=== PATIENT | female | born 2005 | race Caucasian/White ===

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

== ENCOUNTER 2025-07-12 15:24 | Outpatient (REF) | payer MEDICAID, SELFPAY ==
--- OUTSIDE RECORDS SUMMARY | 2025-07-12 14:00 | XMS_ITS | Encounter Summary ---
Author Organization [employer] Address [address] [place] [address] Care Team Providers Care Brake Operator Helper Name Role Phone Cathy Wolfe ENTRY LEVEL CHEMIST Primary Care Provider [phone] Encounter Details Date Type Department Care Team (Late st Contact Info) Description 07/12/2025 2:00 PM EDT Office Visit [facility] [address] [place] [address] Cathy Wolfe FNP [address] [place] [address] Well adult exam (Primary Dx); Encounter for immunization; Dietary counseling; Exercise counseling; Intractable headache, unspecified chronicity pattern, unspecified headache type; Anxiety and depression Social History Tobacco Use Types Packs/Day Years Used Date Smoking Tobacco: Never Passive Smoke Exposure: Never Smokeless Tobacco: Never Alcohol Use Standard Drinks/Week Comments Never 0 (1 standard drink = 0.6 oz pur e alcohol) Depression Answer Date Recorded Patient Health Questionnaire-9 Score 9 07/12/2025 Patient Health Questionnaire-9 Score 9 07/12/2025 Last PHQ-9: Questionnaire Data Not on file 0 07/12/2025 Housing Stability Answer Date Recorded What is your housing situation today? I do not have housing (Staying with others, in a hotel, in a mcfp, living outside on the street, on a beach, in a car, or in a park 07/12/[address] you li ve. Do you have problems with any of the following? None of the above 07/12/2025 Food Insecurity Answer Date Recorded Within the past 12 months, y ou worried that your food would run out before you got money to buy more: Sometimes True 2024 Within the past 12 months,th e food you bought just didn't last and you didn't have enough money to get more: Sometimes True 07/12/2025 Transportation Answer Date Recorded In the past 12 months, has l ack of transportation kept you from medical appts, meetings, work or from getting things needed for daily living? No 07/04/2025 Utilities Answer Date Recorded In the past 12 months, has t he electric, gas, oil or water company threatened to shut off services in your home? No 07/04/2025 Depression Answer Date Recorded Patient Health Questionnaire-2 Score 2 07/12/2025 Internet Access Answer Date Recorded Internet Access Q1 Yes 07/04/2025 Internet Access Q2 Not on file 07/04/2025 Comments Unknown Intention Date Recorded No desire to become (finding) 0 07/12/2025 Sex and Gender Information Value Date Recorded Sex Assigned at Female 09/08/2022 10:38 AM EDT Legal Sex Female 10:38 AM EDT Gender Identity Female 09/08/2022 10:38 AM EDT Sexual Orientation Straight 09/08/2022 10 :38 AM EDT documented as of this encounter Last Filed Vital Signs Vital Sign Reading Time Taken Comments Blood Pressure 122/68 07/12/2025 2:05 PM EDT Pulse 80 07/12/2025 2:05 PM EDT Temperature 36.7 C (98 F) 07/12/2025 2:05 PM EDT Respiratory Rate 18 07/12/2025 2:05 PM EDT Oxygen Saturation 99% 07/12/2025 2:05 PM EDT Inhaled Oxygen Concentration - - Weight 65.4 kg (144 lb 2 oz) 07/12/2025 2:05 PM EDT Height 158.2 cm (5' 2.3 ) 07/12/2025 2:05 PM EDT Body Mass Index 26.11 07/12/2025 2:05 PM EDT documented in this encounter Functional Status * Over the past 2 weeks, how often have you been bothered by any of the following problems? Question Answer Date of Assessment Author Patient Health Questionnaire -2 Score 2 07/12/2025 2:50 PM EDT Zuleyka Bro MA * Little interest or pleasure in doing things Answer Date of Assessment Author Several days 07/12/2025 2:50 PM EDT Zuleyka Thorne [place] * Feeling down, depressed, or hopeless Answer Date of Assessment Author Several days 07/12/2025 2:50 PM EDT Zuleyka Thorne [place] * Trouble falling or staying asleep, or sleeping too much Answer Date of Assessment Author Several days 07/12/2025 2:50 PM EDT Zuleyka Thorne MA * Feeling tired or having little energy Answer Date of Assessment Author Several days 07/12/2025 2:50 PM EDT Zuleyka Thorne MA * Poor appetite or overeating Answer Date of Assessment Author Several days 07/12/2025 2:50 PM EDT Zuleyka Thorne [place] * Feeling bad about yourself - or that you are a failure or have let yourself or your family down Answer Date of Assessment Author More than half the days 07/12/2025 2:50 PM EDT Zuleyka Olivo MA * Trouble concentrating on things, such as reading the newspaper or watching television Answer Date of Assessment Author Several days 07/12/2025 2:50 PM EDT Zuleyka Thorne MA * Moving or speaking so slowly that other people could have noticed? Or the opposite - being so fidgety or restless that you have been moving around a lot more than usual. Answer Date of Assessment Author Several days 07/12/2025 2:50 PM EDT Zuleyka Thorne MA * Thoughts that you would be better off or hurting yourself in some way Answer Date of Assessment Author Not at all 07/12/2025 2:50 PM EDT Zuleyka Thorne MA * Patient Health Questionnaire-9 Score Answer Date of Assessment Author 9 07/12/2025 2:50 PM EDT Zuleyka Thorne MA * How difficult have these problems made it for you to do your work, take care of things at home, or get along with other people? Answer Date of Assessment Author Somewhat difficult 07/12/2025 2:50 PM EDT Zuleyka Bro MA * Over the last 2 weeks, how often have you been bothered by any of the following problems? Question Answer Date of Assessment Author Feeling nervous, anxious, or on edge 2 01/2025 3:26 PM EDT Hayley Sánchez Not being able to stop or co ntrol worrying 2 07/12/2025 3:26 PM EDT Hayley Sánchez Worrying too much about diff erent things 2 07/12/2025 3:26 PM EDT Hayley Sánchez Trouble relaxing 1 07/12/2025 3:26 PM EDT Hayley Landa Being so restless that it is hard to sit still 3 07/12/2025 3:26 PM EDT Hayley Sánchez Becoming easily annoyed or irritable 2 01/2025 3:26 PM EDT Hayley Sánchez Feeling afraid as if somethi ng awful might happen 1 07/12/2025 3:26 PM EDT Hayley Sánchez JUNG-7 Total Score 13 07/12/2025 3:26 PM EDT Hayley Sánchez documented as of this encounter Progress Notes * MARY Joseph - 07/12/2025 2:00 PM EDT Subjective: Georgette Brady is a 20 y.o. female who presents to the office for a physical exam. Interim history: Headaches - Recurrent headaches since March 2025 - One week of severe migraine in March 2025, followed by intermittent headaches occurring 3-4 times per week - Previous headaches were mild, but recent episodes have been more intense - Sometimes triggered by stress, but can also occur without clear trigger - Uses [id number] medication containing ibuprofen and acetaminophen for relief Generalized Anxiety - Previously diagnosed with generalized anxiety by psychologist - Attempted to schedule psychiatric appointment for medication but did not attend - Took medication for anxiety at age 15-16, none since then Current concerns: Headache Problem List[1] Surgical History[2] Family History[3] Social History Living situation: Lives in home with son, sister, brother and parents Safety:No fire arms in the home. Working smoke and fire alarm. 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 Routine exercise Substance use: none Sexual activity: Yes. Pills as contraception LMP: Last week last month about 20 something Dental: To schedule at [facility] Vision: [facility] vision Children: 1 son Mental health: Denies SI, harm delma or others Allergies[4] Current Medications[5] Health Maintenance Topic Date Due Family Planning (PISQ) Never done Meningococcal B Vaccine (1 of 2 - Standard) Never done Chlamydia and Gonorrhea Screening 05/08/2024 COVID-19 Vaccine (3 - 2024- season) 2025 Influenza Vaccine (1) 07/10/2025 Depression Monitoring 01/09/2026 DTaP/Tdap/Td Vaccines (7 - Td or Tdap) 04/15/2026 Tobacco Screening 07/12/2026 SDOH Screening 07/12/2026 Alcohol/Substance Use Screening 07/12/2026 Disability Screening 07/12/2026 Zoster Vaccines (1 of 2) 2055 RSV Patients and Patients Aged 60 years or older (1 - 1-dose 75+ series) 2080 HIB Vaccines Completed Hepatitis B Vaccines Completed IPV Vaccines Completed Hepatitis A Vaccines Completed Meningococcal Vaccine Completed HPV Vaccines Completed Pneumococcal Vaccine: Pediatrics (0 to 5 Years) and At-Risk Patients (6 to 49) Years Completed HIV Screening Completed Hepatitis C Screening Completed RSV under 20 months Aged Out Rotavirus Vaccines Aged Out Review of Systems Constitutional: Negative for activity change, appetite change, fatigue and fever. HENT: Negative for congestion, ear discharge, ear pain, rhinorrhea and sore throat. Eyes: Negative for discharge, redness and itching. Respiratory: Negative for cough, shortness of breath and wheezing. Cardiovascular: Negative for chest pain. Gastrointestinal: Negative for abdominal pain, blood in stool, constipation, diarrhea, nausea and vomiting. Endocrine: Negative for polydipsia and polyuria. Genitourinary: Negative for decreased urine volume, difficulty urinating, dyspareunia, hematuria and menstrual problem. Musculoskeletal: Negative for arthralgias, gait problem and joint swelling. Skin: Negative for rash. Allergic/Immunologic: Negative for environmental allergies and food allergies. Neurological: Positive for headaches. Negative for dizziness and weakness. Hematological: Does not bruise/bleed easily. Psychiatric/Behavioral: Negative for behavioral problems, sleep disturbance and suicidal ideas. Vitals: 07/12/25 1405 BP: 122/68 BP Location: Left arm Patient Position: Sitting BP Cuff Size: Adult Pulse: 80 Resp: 18 Temp: 98 ??F (36.7 ??C) TempSrc: Oral SpO2: 99% Weight: 144 lb 2 oz (65.4 kg) Height: 5' 2.3 (1.582 m) Physical Exam Constitutional: Appearance: Normal appearance. HENT: Head: Normocephalic and atraumatic. Right Ear: Tympanic membrane, ear canal and external ear normal. Left Ear: Tympanic membrane, ear canal and external ear normal. Nose: Nose normal. No congestion. Mouth/Throat: Mouth: Mucous membranes are moist. Pharynx: Oropharynx is clear. Eyes: Extraocular Movements: Extraocular movements intact. Pupils: Pupils are equal, round, and reactive to light. Cardiovascular: Rate and Rhythm: Normal rate and regular rhythm. Pulses: Normal pulses. Heart sounds: Normal heart sounds. No murmur heard. Pulmonary: Effort: Pulmonary effort is normal. Breath sounds: Normal breath sounds. No wheezing. Chest: Chest wall: No tenderness. Abdominal: General: Abdomen is flat. Bowel sounds are normal. Palpations: Abdomen is soft. Tenderness: There is no guarding or rebound. Musculoskeletal: General: Normal range of motion. Cervical back: Normal range of motion. Right lower leg: No edema. Left lower leg: No edema. Skin: General: Skin is warm and dry. Capillary Refill: Capillary refill takes less than 2 seconds. Findings: No bruising. Neurological: General: No focal deficit present. Mental Status: She is alert and oriented to person, place, and time. Cranial Nerves: No cranial nerve deficit. Sensory: No sensory deficit. Psychiatric: Mood and Affect: Mood normal. Behavior: Behavior normal. Thought Content: Thought content normal. Judgment: Judgment normal. Visit Diagnoses Well adult exam - Primary Well nourished, alert and cooperative , good historian, and answering questions appropriately Plan Order comprehensive blood work to include thyroid function tests, complete blood count (CBC), sexually transmitted infection (STI) panel, lipid panel, and hemoglobin A1c to assess cholesterol levels and diabetes status. No family hx of colon CA, colonoscopy / stool based tests deferred to 45 yrs Diet and exercise review Hep B lab work to determine presence of antigens or antibody Lifestyle and behavioral health assessment Patient education on vaccination and importance getting annual vaccines . Due for MCV4, discussed and agreed to take vaccine Relevant Orders Comprehensive Metabolic Panel Hepatitis B Core Antibody, Total TSH Hepatitis B Surface Antibody, Qualitative Hepatitis B surface antigen, EIA Hepatitis C Antibody with Reflex to HCV, RNA, Quantitative, Real-Time PCR CBC auto differential HIV-1/2 Antigen and Antibodies, Fourth Generation, with Reflexes Lipid Panel, Standard Vitamin D, 25-Hydroxy, Total, Immunoassay Hemoglobin A1c Chlamydia/N. Gonorrhoeae RNA, TMA, Vaginal Exercise counseling Dietary counseling Eat healthy and focus on healthyfood choices daily fruits, vegetables, grains, low fat milk, low carbohydrate and fat Maintain healthy weight as this will lower your risk for many health problems. Be physically active at least 45 minutes a day Encounter for immunization Relevant Orders MCV4 (MENQUADFI) 2 yrs + (Completed) Intractable headache, unspecified chronicity pattern, unspecified headache type Recommended continuation of ibuprofen or acetaminophen as needed for headache relief. Advised to keep a headache diary for 1 month, documenting frequency, activities, associated symptoms, and location of pain. Follow-up visit scheduled in 4 weeks to review headache diary and determine need for continuous or abortive medication. Anxiety and Depression - Generalized anxiety previously diagnosed by psychologist. - Referred to therapist for evaluation and management. Patient was seen during the visit by therapist - Patient will consider pharmacologic treatment after starting therapy DATE PITTER Resident Attestation: ITaylor , have reviewed the resident's note and agree with the assessment & plan of care as documented above. Visit Conducted in: Wolof Translation by: [place] [id number] [1] Patient Active Problem List Diagnosis JUNG (generalized anxiety disorder) Gastroenteritis Chronic low back pain without sciatica Grief Mild episode of recurrent major depressive disorder (CMS/HCC) [2] Past Surgical History: Procedure Laterality Date SECTION, LOW TRANSVERSE [3] Family History Problem Relation Name Age of Onset Asthma Father Asthma Brother Thyroid disease Brother [4] No Known Allergies [5] Current Outpatient Medications Medication Sig Dispense Refill 11/28 1-20 MG-MCG tablet Take 1 tablet by mouth Once per day. triamcinolone (Kenalog) 0.1 % cream 1 applic by topical route 2 times per day for max 14 days No current facility-administered medications for this visit. documented in this encounter Plan of Treatment Scheduled Orders Name Type Priority Associated Diagnoses Orde r Schedule Hepatitis B Core Antibody, Total Lab Routine Well adult exam Expected: 07/12/2025 (Approximate), Expires: 07/11/2026 Hepatitis B Surface Antibody, Qualitative Lab Routine Well adult exam Expected: 07/12/2025 (Approximate), Expires: 07/11/2026 Hepatitis B surface antigen, EIA Lab Routine Well adult exam Expected: 07/12/2025 (Approximate), Expires: 07/11/2026 Hepatitis C Antibody with Reflex to HCV, RNA, Quantitative, Real-Time PCR Lab Routine Well adult exam Expected: 07/12/2025, Expires: 07/11/2026 HIV-1/2 Antigen and Antibodies, Fourth Generation, with Reflexes Lab Routine Well adult exam Expected: 07/12/2025 (Approximate), Expires: 07/11/2026 Chlamydia/N. Gonorrhoeae RNA, TMA, Vaginal Microbiology Routine Well adult exam Ordered: 07/12/2025 documented as of this encounter Procedures Procedure Name Priority Date/Time Associated Diagnosis Comments VITAMIN D,25-OH,TOTAL,IA Routine 07/12/2025 3:32 PM EDT Well adult exam CBC WITH AUTO DIFFERENTIAL Routine 07/12/2025 3:32 PM EDT Well adult exam TSH Routine 07/12/2025 3:32 PM EDT Well adult exam HEMOGLOBIN A1C Routine 07/12/2025 3:32 PM EDT Well adult exam LIPID PANEL, STANDARD Routine 07/12/2025 3:32 PM EDT Well adult exam COMPREHENSIVE METABOLIC PANEL Routine 07/12/2025 3:32 PM EDT Well adult exam documented in this encounter Results * Hemoglobin A1c (07/12/2025 3:32 PM EDT) Hemoglobin A1c 5.4 <6.0 % [facility] Comment:Hemoglobin A1C Refer ence Range Adults: 4.8 - 6.0 % Non diabetic: < 6.0 % Goal: < 7.0 %Additional Action Suggested: > 8.0 %Note: Hemoglobin A1c results are invalid for patients with abnormal amounts of HbF. Blood transfusions may impact the HbA1c concentration in the patient sample. Estimated Average Glucose 108 mg/dL [facility] Comment:eAG = Estimated ave rage glucose which is %A1C expressed asaverage glucose, using the formula of the U1Q-LqylkpoEhduyst Glucose study (ADAG), Diabetes Care, Vol.31,#8,Jun. 2007 Blood Venous blood specimen / Unknown 07/12/2025 3:32 PM EDT 07/12/2025 4:17 PM EDT us Cathy Wolfe [facility] LAB BLOOD ORDERABLES Final Res ult [facility] [address] [place] [phone] [phone] * Vitamin D, 25-Hydroxy, Total, Immunoassay (07/12/2025 3:32 PM EDT) Vitamin D 25-OH Total 30.3 >30 ng/mL [facility] Comment: Health Based Reference Values*< 20 ng/mL [id number] ng/mL Insufficient> 30 ng/mL Sufficient*Dany MATHIS. N Engl J Med. 2007;357:266-280There is no well-established upper level of normal vitamin Dlevels. Some laboratories use 50 ng/mL as an upper limit ofnormal. However, toxicity is patient-dependent and may occurat any level. Careful correlation with the patient'spresentation is necessary and, if there is concern forvitamin D toxicity, treatment should be consideredirrespective of the serum level.Care must be taken in interpreting Vitamin D results fromdifferent laboratories and methodologies. Published datademonstrated that results from patients undergoinghemodialysis may show a negative bias when tested withvarious automated 25-OH vitamin D assays when compared toLC-MS/MS.When testing samples from patients whose predominant form ofVitamin D is Vitamin D2, such as patients receiving VitaminD2 supplementation, results that are subtherapeutic shouldbe confirmed with another method such as LC-MS/MS. Blood Venous blood specimen / Unknown 07/12/2025 3:32 PM EDT 07/12/2025 4:17 PM EDT [facility] LAB BLOOD ORDERABLES Final Res ult Performing Organization Address [facility] Co de Phone Number [facility] [address] [place] [phone] [phone] * Lipid Panel, Standard (07/12/2025 3:32 PM EDT) Triglycerides 51 <150 mg/dL [facility] Comment:Desirable Triglyceri de: less than 150 mg/dLBorderline High Triglyceride 150-199 mg/dLHigh Triglyceride: 200-499 mg/dLVery High Triglyceride: greater than or equal to 5OO mg/dL Cholesterol 128 <200 mg/dL [facility] Comment:Desirable Cholestero l: less than 200 mg/dLBorderline High Cholesterol: 200-239 mg/dLHigh Cholesterol: greater than 239 mg/dL LDL Cholesterol Calculated 60 <100 mg/dL [facility] Comment:Desirable LDL: less than 100 mg/dLNear Optimal/Above Optimal LDL: 110- 129 mg/dLBorderline High LDL: 130-159 mg/dLHigh LDL: 160-189 mg/dLVery High LDL: greater than or equal to 190 mg/dL HDL Cholesterol 58 >40 mg/dL [facility] Comment:Desirable HDL: great er than 40 mg/dL Note: This HDL assay may give artificially low results in patients with liver disease. Blood Venous blood specimen / Unknown 07/12/2025 3:32 PM EDT 07/12/2025 4:17 PM EDT [facility] LAB BLOOD ORDERABLES Final Res ult Performing Organization Address [facility]/ZIP Co de Phone Number [facility] [address] [place] [address] [phone] * (ABNORMAL) CBC auto differential (07/12/2025 3:32 PM EDT) White Blood Count 7.2 4.8 - 10.8 X10*3/uL [facility] Red Blood Count 4.16(L) 4.20 - 5.50 X10*6/uL [facility] Hemoglobin 10.0(L) 12.0 - 16.0 g/dl [facility] Hematocrit 31.8(L) 37.0 - 47.0 % [facility] Mean Corpuscular Volume 76.4(L) 80.0 - 98.0 fL [facility] Mean Corpuscular Hemoglobin 24.0(L) 27.0 - 33.0 pg [facility] Mean Corpuscular HGB Conc 31.4 31.0 - 35.0 g/dl [facility] Red Cell Distribution Width 15.8 11.0 - 16.0 % [facility] Platelet Count 298 160 - 400 X10*3/uL [facility] Mean Platelet Volume 11.0 9.4 - 12.3 fL [facility] Neutrophils Percent Auto 58.2 45 - 73 % [facility] Imm Gran Pct Auto 0.3 0.0 - 0.4 % [facility] Lymphocytes Percent Auto 33.5 20 - 40 % [facility] Monocytes Percent Auto 6.1 2 - 11 % [facility] Eosinophils Percent Auto 1.3 0 - 4 % [facility] Basophils Percent Auto 0.6 0 - 2 % [facility] NRBC Pct Auto 0.0 0.0 - 0.2 /100WBC [facility] Neutrophils Absolute Auto 4.2 2.0 - 8.3 x10*3/uL [facility] Imm Gran Abs Auto 0.02 0.00 - 0.03 X10*3/uL [facility] Lymphocytes Absolute Auto 2.4 1.2 - 4.9 X10*3/uL [facility] Monocytes Absolute Auto 0.4 0.1 - 1.2 X10*3/uL [facility] Eosinophils Absolute Auto 0.1 0.0 - 0.4 X10*3/uL [facility] Basophils Absolute Auto 0.0 0.0 - 0.2 X10*3/uL [facility] NRBC Abs Auto 0.000 0.0 - 0.012 X10*3/uL [facility] Blood Venous blood specimen / Unknown 07/12/2025 3:32 PM EDT 07/12/2025 4:17 PM EDT [facility] LAB BLOOD ORDERABLES Final Res ult Performing Organization Address [facility] Co de Phone Number [facility] [address] [place] [phone] * TSH (07/12/2025 3:32 PM EDT) Thyroid Stimulating Hormone 2.68 0.32 - 4.0 uIU/mL [facility] Comment:Note: A sustained TS H level above 2.5 uIU/mL may warrant further investigation. TSH 3rd Generation ([facility]) Blood Venous blood specimen / Unknown 07/12/2025 3:32 PM EDT 07/12/2025 4:17 PM EDT [facility] LAB BLOOD ORDERABLES Final Res ult Performing Organization Address [facility] Co de Phone Number [facility] [address] [place] [phone] * (ABNORMAL) Comprehensive Metabolic Panel (07/12/2025 3:32 PM EDT) Sodium 138 135 - 145 mmol/L [facility] Potassium 4.0 3.3 - 5.1 mmol/L [facility] Chloride 108 96 - 108 mmol/L [facility] Carbon Dioxide 25 22 - 29 mmol/L [facility] Anion Gap 9(L) 12 - 20 [facility] Urea Nitrogen (BUN) 11 9 - 16 mg/dL [facility] Creatinine, Serum 0.58 0.5 - 1.4 mg/dL [facility] Estimated Glomerular Filt Rate >60 [facility] Comment:Chronic Kidney Disea se: Estimated GFR < 60 mL/min/[id number] Kidney Disease: Estimated GFR < 15 mL/min/1.73m2 Glucose 85 60 - 115 mg/dL [facility] Calcium 9.4 8.4 - 10.2 mg/dL [facility] Bilirubin, Total 0.4 0.0 - 1.0 mg/dL [facility] Aspartate Amino Transferase 21 5 - 31 U/L [facility] Alanine Aminotransferase 10 0 - 31 U/L [facility] Total Protein 7.1 6.5 - 8.0 g/dL [facility] Albumin Level 4.6 3.5 - 5.0 g/dL [facility] Alkaline Phosphatase 81 39 - 117 U/L [facility] Blood Venous blood specimen / Unknown 07/12/2025 3:32 PM EDT 07/12/2025 4:17 PM EDT us Cathy HERNANDEZ LAB BLOOD ORDERABLES Final Res ult Performing Organization Address City/State/[facility] Co de Phone Number [facility] [address] [place] [phone] documented in this encounter Visit Diagnoses Diagnosis Well adult exam- Primary Routine general medical examination at a health care facility Encounter for immunization Dietary counseling Dietary surveillance and counseling Exercise counseling Intractable headache, unspecified chronicity pattern, unspecified headache type Anxiety and depression documented in this encounter Additional Health Concerns Assessment Noted Time PHQ-9 Depression Total Score: 07/12/20 2:50 PM EDT documented as of this encounter Care Teams Brake Operator Helper Relationship Specialty Start Date End Date Cathy Wolfe FNP [address] [place] [address] PCP - General Family Medicine 07/12/25 documented as of this encounter
[2025-07-12 16:22] LABS: MANUAL DIFF FLAG NO
[2025-07-12 16:25] LABS: Hematocrit 31.8 % (37.0-47.0); Hemoglobin 10.0 g/dl (12.0-16.0); Imm Gran Abs Auto 0.02 X10*3/uL (0.00-0.03); Imm Gran Pct Auto 0.3 % (0.0-0.4); Lymphocytes Absolute Auto 2.4 X10*3/uL (1.2-4.9); Mean Corpuscular HGB Conc 31.4 g/dl (31.0-35.0); Mean Corpuscular Hemoglobin 24.0 pg (27.0-33.0); Mean Corpuscular Volume 76.4 fL (80.0-98.0); NRBC Abs Auto 0.000 X10*3/uL (0.0-0.012); NRBC Pct Auto 0.0 /100WBC (0.0-0.2); Platelet Count 298 X10*3/uL (160-400); Red Blood Count 4.16 X10*6/uL (4.20-5.50); White Blood Count 7.2 X10*3/uL (4.8-10.8)
[2025-07-12 16:42] LABS: Hemoglobin A1C 94.0386 umol/L; Total Hemoglobin (HGBA1C) 2625.9348 umol/L
[2025-07-12 17:06] LABS: Alanine Aminotransferase 10 U/L (0-31); Albumin Level 4.6 g/dL (3.5-5.0); Alkaline Phosphatase 81 U/L (39-117); Anion Gap 9 (12-20); Aspartate Amino Transferase 21 U/L (5-31); Blood Urea Nitrogen 11 mg/dL (9-16); Calcium 9.4 mg/dL (8.4-10.2); Carbon Dioxide 25 mmol/L (22-29); Chloride 108 mmol/L (96-108); Cholesterol 128 mg/dL (<200); Estimated Glomerular Filt Rate > 60; HDL Cholesterol 58 mg/dL (>40); Potassium 4.0 mmol/L (3.3-5.1); Sodium 138 mmol/L (135-145); Total Protein 7.1 g/dL (6.5-8.0); Triglycerides 51 mg/dL (<150)
[2025-07-12 17:22] LABS: Thyroid Stimulating Hormone 2.68 uIU/mL (0.32-4.0)
--- OUTSIDE RECORDS SUMMARY | 2025-07-12 17:27 | XMS_ITS | Encounter Summary ---
Author Organization [employer] Address [address] [facility] 7t [place] [address] Care Team Providers Care Food Service Helper Name Role Phone Cathy Wolfe PACKAGER MACHINE Primary Care Provider [phone] Encounter Details Date Type Department Care Team ([facility] st Contact Info) Description 07/12/2025 Population Health Risk Score [facility] (C3) Department [address] [phone] Provider, Population Health Generic Social History Tobacco Use Types Packs/Day Years [...] with others, in a hotel, in a halfway, living outside on the street, on a [...] Q2 Not on file 07/04/2025 Comments Unknown Sex and Gender Information Value Date Recorded Sex Assigned at Female 09/08/2022 10:38 AM EDT Legal Sex Female 10:38 AM EDT Gender Identity Female 09/08/2022 10:38 AM EDT Sexual Orientation Straight 09/08/2022 10 :38 AM EDT documented as of this encounter Functional Status * Over the [...] still 3 07/12/2025 3:26 PM EDT Hayley Sácnhez Becoming easily annoyed or irritable 2 01/2025 3:26 PM EDT Hayley Sánchez Feeling afraid as if somethi ng awful might happen 1 07/12/2025 3:26 PM EDT Hayley Sánchez JUNG-7 Total Score 13 07/12/2025 3:26 PM EDT Hayley Sánchez documented as of this encounter Plan of Treatment Not on file documented as of this encounter Visit Diagnoses Not on filedocumented in this encounter Additional Health Concerns Assessment Noted Time PHQ-9 Depression Total Score: 9 07/12/20 25 2:50 PM EDT documented as of this encounter Care Teams Food Service Helper Relationship Specialty Start Date End Date Cathy Wolfe FNP [address] [place] [address] PCP - General Family Medicine 07/12/25 documented as of this encounter
--- OUTSIDE RECORDS SUMMARY | 2025-07-12 17:27 | XMS_ITS | Encounter Summary ---
Author Organization [employer] Address [address] [facility] 7t [place] [address] Care Team Providers Care Warp Tying Machine Knotter Name Role Phone Fernanda TurnerP Primary Care Provider [phone] Cathy Wolfe [facility] Primary Care Provider [phone] Reason for Visit * Reason Onset Date Comments Referral 10/12/2023 Encounter Details Date Type Department Care Team ([facility] st Contact Info) Description 10/12/2023 Telephone [facility] MEDICINE [address] [place], [place] [phone] Fernanda Turner FNP [address] [place] [address] Referral Social History Tobacco Use Types Packs/Day Years Used Date Smoking Tobacco: Never Passive Smoke Exposure: Never Smokeless Tobacco: Never Alcohol Use Standard Drinks/Week Comments Never 0 (1 standard drink = 0.6 oz pur e alcohol) Housing Stability Answer Date Recorded What is your housing situation today? I have antonieta blanc 09/18/[address] you li ve. Do you have problems with any of the following? None of the above 09/18/2023 Food Insecurity Answer Date Recorded Within the past 12 months, y ou worried that your food would run out before you got money to buy more: Never True 09/18/2023 Within the past 12 months,th e food you bought just didn't last and you didn't have enough money to get more: Never True 08/2023 Transportation Answer Date Recorded In the past 12 months, has l ack of transportation kept you from medical appts, meetings, work or from getting things needed for daily living? No 09/18/2023 Utilities Answer Date Recorded In the past 12 months, has t he electric, gas, oil or water company threatened to shut off services in your home? No 09/18/2023 Comments Yes Sex and Gender Information Value Date Recorded Sex Assigned at Female 09/08/2022 10:38 AM EDT Legal Sex Female 10:38 AM EDT Gender Identity Female 09/08/2022 10:38 AM EDT Sexual Orientation Straight 09/08/2022 10 :38 AM EDT documented as of this encounter Miscellaneous Notes * Telephone Encounter - Wilbert Hassan RN - 10/12/2023 11:42 AM EST Please review and advise if needed. HCG result is in pt.'s chart. * Telephone Encounter - Brittany Moseley - 10/12/2023 11:01 AM EST Tc from pt requesting a referral to OBGYN, pt is positive to . documented in this encounter Plan of Treatment Not on file documented as of this encounter Visit Diagnoses Not on filedocumented in this encounter Care Teams Warp Tying Machine Knotter Relationship Specialty Start Date End Date Fernanda Turner FNP [address] [place] [address] PCP - General Family Medicine 07/08/23 11/29/23 Cathy Wolfe FNP [address] [place] [address] PCP - General Family Medicine 07/12/25 documented as of this encounter
--- OUTSIDE RECORDS SUMMARY | 2025-07-12 17:27 | XMS_ITS | Encounter Summary ---
Author Organization [employer] Address [address] [facility] 7t [place] [address] Care Team Providers Care Head Of Design Name Role Phone Nora Forbes MD Primary Care Provider Fernanda Turner Primary Care Provider [phone] Cathy Wolfe Primary Care Provider Reason for Visit * Reason Onset Date Comments order question 05/11/2023 Encounter Details Date Type Department Care Team (Late st Contact Info) Description 05/11/2023 Telephone [facility] MEDICINE [address] [place], [place] [phone] Nora Forbes MD [address] [place], [place] [phone] order question Social History Tobacco Use Types Packs/Day Years Used Date Smoking Tobacco: Never Passive Smoke Exposure: Never Smokeless Tobacco: Never Comments Unknown Sex and Gender Information Value Date Recorded Sex Assigned at Female 09/08/2022 10:38 AM EDT Legal Sex Female 10:38 AM EDT Gender Identity Female 09/08/2022 10:38 AM EDT Sexual Orientation Straight 09/08/2022 10 :38 AM EDT COVID-19 Exposure Response Date Recorded In the last 10 days, have yo u been in contact with someone who was confirmed or suspected to have Coronavirus/COVID-19? No / Unsure 05/08/2023 10:23 AM EDT documented as of this encounter Miscellaneous Notes * Telephone Encounter - Yordan Beltre MD - 05/11/2023 1:34 PM EDT Spoke to the patient. She is aware it will be intravaginal U/S. OK to proceed. * Telephone Encounter - Grazyna Strickland - 05/11/2023 10:39 AM EDT Tc from [facility] calling in regards to pelvis ultrasound order. Tech would like to know if PCP would also like a transvaginal ultrasound since pt is 18. documented in this encounter Plan of Treatment Not on file documented as of this encounter Visit Diagnoses Not on filedocumented in this encounter Care Teams Head Of Design Relationship Specialty Start Date End Date Nora Forbes MD [address] [place] [address] PCP - General Pediatrics 05/16/21 07/07/23 Fernanda Turner FNP [address] [place] [address] PCP - General Family Medicine 07/08/23 11/29/23 Cathy Wolfe FNP [address] [place] [address] PCP - General Family Medicine 07/12/25 documented as of this encounter
--- OUTSIDE RECORDS SUMMARY | 2025-07-12 17:27 | XMS_ITS | Clinical Summary ---
Author Organization [employer] Address [address] [facility] 7t [place] [address] Care Team Providers Care Harvesting Manager Name Role Phone Cathy Wolfe [facility] Primary Care Provider [phone] Allergies No known active allergies Medications * This document contains information received from the source organization and may not represent a complete record from that organization. triamcinolone (Kenalog) 0.1 % cream 1 applic by topical route 2 times per day for max 14 days 2 Active Junel 11/28 1-20 MG-MCG tablet Take 1 tablet by mouth Once per day. 5 Active multivitamin () 27-0.8 MG tablet Take 1 tablet by mouth in the morning. 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 Non-focal, normal motor exam without neurological deficits. No back pain red-flags: bowel/bladder incontinence, IVDU, urinary retention, saddle anesthesia, and significant motor deficits. -Referral to physical therapy referral offered. -Lifting precaution sand stretching reviewed. -ER precaution discussed. JUNG (generalized anxiety disorder) 06/18/2023 Encounters * This document contains information received from the source organization and may not represent a complete record from that organization. Date Type Department Care Team Description 07/12/2025 2:00 PM EDT Office Visit [facility] MEDICINE [address] [place] [address] Cathy Wolfe FNP Well adult exam (Primary Dx); Encounter for immunization; Dietary counseling; Exercise counseling; Intractable headache, unspecified chronicity pattern, unspecified headache type; Anxiety and depression 07/12/2025 Travel 07/12/2025 Population Health Risk Score [facility] Care [facility] () Department [address] [place] [phone] Provider, Population Health Generic 07/04/2025 Patient Outreach [facility] [address] [place], [place] [phone] Cathy Wolfe FNP Pre-visit Planning (SDOH negative, Tobacco screening negative.) 05/29/2025 Telephone [facility] INS ENROLLMENT [address] [place] [address] More De La Rosa MD from Last 3 Months Immunizations Immunization Administration Dates Next Due Meningococcal Polysaccharide A,C,Y,W-135 TT Conj ugate 07/12/2025 Family History Medical History Relation Name Comments Asthma Brother Thyroid disease Brother Asthma Father Relation Name Status Comments Brother Father Social History Tobacco Use Types Packs/Day Years Used Date Smoking Tobacco: Never Passive Smoke Exposure: Never Smokeless Tobacco: Never Tobacco Cessation:Counseling Given: Not Answered Alcohol Use Standard Drinks/Week Comments Never 0 [...] with others, in a hotel, in a prison, living outside on the street, on a [...] Orientation Straight 09/08/2022 10 :38 AM EDT Last Filed Vital Signs Vital Sign Reading [...] Mass Index 26.11 07/12/2025 2:05 PM EDT Plan of Treatment Health Maintenance Due Date Last Done Comments Family Planning (PISQ) 2020 Meningococcal B Vaccine (1 of 2 - Standard) 2021 Chlamydia and Gonorrhea Screening 05/08/2024 05/08/2023, 07/01/2022, 06/27/2021, Additional history exists COVID-19 Vaccine (3 - season) 2025 06/27/2021, 06/06/2021 Influenza Vaccine (#1) 2025 Depression Monitoring 01/09/2026 07/12/2025, 025 DTaP/Tdap/Td Vaccines (7 - Td or Tdap) 04/15/2026 04/15/2016, 05/10/2009, 05/05/2007, Additional history exists Alcohol/Substance Use Screening 07/12/2026 07/12/2025 Disability Screening 07/12/2026 07/12/2025 SDOH Screening 07/12/2026 07/12/2025 Tobacco Screening 07/12/2026 07/12/2025 Zoster Vaccines (1 of 2) 2055 RSV Patients and Patients Aged 60 years or older (1 - 1-dose 75+ series) 2080 Hepatitis B Vaccines Completed 05/27/2006, 2005, 2005 HIB Vaccines Completed 05/05/2007, 08/09, 2005 Hepatitis A Vaccines Completed 05/05/2007, 04/23/20 06 Pneumococcal Vaccine: Pediatrics (0 to 5 Years) and At-Risk Patients (6 to 49) Years Completed 05/05/2007, 05/06/2006, 2005, Additional history exists IPV Vaccines Completed 05/03/2009, 09/09, 2005, Additional history exists HPV Vaccines Completed 12/28/2020, 09/01/2019 HIV Screening Completed 05/08/2023, 07/01/2022 Hepatitis C Screening Completed 05/08/2023, 022 Meningococcal Vaccine Completed 07/12/2025 , 06/06/2021, 04/15/2016 RSV under 20 months Aged Out No longe r eligible based on patient's age to complete this topic Rotavirus Vaccines Aged Out No longer eligible based on patient's age to complete this topic Procedures Procedure Name Priority Date/Time Associated Diagnosis Comments HEMOGLOBIN A1C Routine 07/12/2025 3:32 PM EDT Well adult exam VITAMIN D,25-OH,TOTAL,IA Routine 07/12/2025 3:32 PM EDT Well adult exam LIPID PANEL, STANDARD Routine 07/12/2025 3:32 PM EDT Well adult exam CBC WITH AUTO DIFFERENTIAL Routine 07/12/2025 3:32 PM EDT Well adult exam TSH Routine 07/12/2025 3:32 PM EDT Well adult exam COMPREHENSIVE METABOLIC PANEL Routine 07/12/2025 3:32 PM EDT Well adult exam HEPATITIS C AB W/REFL TO HCV RNA, QN, PCR Routine 05/08/2023 11:51 AM EDT Spotting HIV 1/2 ANTIGEN/ANTIBODY, FOURTH GENERATION W/RFL Routine 05/08/2023 11:51 AM EDT Spotting CHLAMYDIA/N. GONORRHOEAE RNA, TMA, UROGENITAL Routine 05/08/2023 11:51 AM EDT Spotting from Last 3 Months or Most Recently Relevant to Health Maintenance Results * Vitamin D, 25-Hydroxy, Total, Immunoassay (07/12/2025 3:32 PM EDT) Vitamin D 25-OH Total 30.3 >30 ng/mL [facility] Comment: Health Based Reference Values*< 20 ng/mL Hmxajfivp20-47 ng/mL Insufficient> 30 ng/mL Sufficient*Dany MATHIS. N [...] 3:32 PM EDT 07/12/2025 4:17 PM EDT Cathy Wolfe [facility] LAB BLOOD ORDERABLES Final Res ult [facility] [address] [place] [phone] * (ABNORMAL) CBC auto differential (07/12/2025 3:32 PM EDT) White Blood Count 7.2 4.8 - 10.8 X10*3/uL [facility] Red Blood Count 4.16(L) 4.20 - 5.50 X10*6/uL [facility] Hemoglobin 10.0(L) 12.0 - 16.0 g/dl [facility] Hematocrit 31.8(L) 37.0 - 47.0 % [facility] Mean Corpuscular Volume 76.4(L) 80.0 - 98.0 fL [facility] Mean Corpuscular Hemoglobin 24.0(L) 27.0 - 33.0 pg [facility] Mean Corpuscular HGB Conc 31.4 31.0 - 35.0 g/dl [facility] Red Cell Distribution Width 15.8 11.0 - 16.0 % [facility] Platelet Count 298 160 - 400 X10*3/uL [facility] Mean Platelet Volume 11.0 9.4 - 12.3 fL [facility] Neutrophils Percent Auto 58.2 45 - 73 % [facility] Imm Gran Pct Auto 0.3 0.0 - 0.4 % [facility] Lymphocytes Percent Auto 33.5 20 - 40 % [facility] Monocytes Percent Auto 6.1 2 - 11 % [facility] Eosinophils Percent Auto 1.3 0 - 4 % [facility] Basophils Percent Auto 0.6 0 - 2 % [facility] NRBC Pct Auto 0.0 0.0 - 0.2 /100WBC [facility] Neutrophils Absolute Auto 4.2 2.0 - 8.3 x10*3/uL [facility] Imm Gran Abs Auto 0.02 0.00 - 0.03 X10*3/uL [facility] Lymphocytes Absolute Auto 2.4 1.2 - 4.9 X10*3/uL [facility] Monocytes Absolute Auto 0.4 0.1 - 1.2 X10*3/uL [facility] Eosinophils Absolute Auto 0.1 0.0 - 0.4 X10*3/uL [facility] Basophils Absolute Auto 0.0 0.0 - 0.2 X10*3/uL [facility] NRBC Abs Auto 0.000 0.0 - 0.012 X10*3/uL [facility] Blood Venous blood specimen / Unknown 07/12/2025 3:32 PM EDT 07/12/2025 4:17 PM EDT us Cathy Wolfe WARP TENSION TESTER LAB BLOOD ORDERABLES Final Res ult [facility] [address] [place] [phone] * TSH (07/12/2025 3:32 PM EDT) Thyroid Stimulating Hormone 2.68 0.32 - 4.0 uIU/mL [facility] Comment:Note: A sustained TS H level above 2.5 uIU/mL may warrant further investigation. TSH 3rd Generation ([facility]) Blood Venous blood specimen / Unknown 07/12/2025 3:32 PM EDT 07/12/2025 4:17 PM EDT [facility] LAB BLOOD ORDERABLES Final Res ult Performing Organization Address City/[facility]/ZIP Co de Phone Number [facility] [address] [place] [address] [phone] * Hemoglobin A1c (07/12/2025 3:32 PM EDT) Hemoglobin A1c 5.4 <6.0 % [facility] Comment:Hemoglobin A1C Refer ence Range Adults: 4.8 - 6.0 % Non diabetic: < 6.0 % Goal: < 7.0 %Additional Action Suggested: > 8.0 %Note: Hemoglobin A1c results are invalid for patients with abnormal amounts of HbF. Blood transfusions may impact the HbA1c concentration in the patient sample. Estimated Average Glucose 108 mg/dL [facility] Comment:eAG = Estimated ave rage glucose which is %A1C expressed asaverage glucose, using the formula of the E6G-SeaqpnaEbywrqj Glucose study (ADAG), Diabetes Care, Vol.31,#8,Jun. 2007 Blood Venous blood specimen / Unknown 07/12/2025 3:32 PM EDT 07/12/2025 4:17 PM EDT [facility] LAB BLOOD ORDERABLES Final Res ult Performing Organization Address City/[facility]/ZIP Co de Phone Number [facility] [address] [place] [address] [phone] * Lipid Panel, Standard (07/12/2025 3:32 PM EDT) Triglycerides 51 <150 mg/dL [facility] Comment:Desirable Triglyceri de: less than 150 mg/dLBorderline High Triglyceride 150-199 mg/dLHigh Triglyceride: 200-499 mg/dLVery High Triglyceride: greater than or equal to 5OO mg/dL Cholesterol 128 <200 mg/dL [facility] Comment:Desirable Cholestero l: less than 200 mg/dLBorderline High Cholesterol: 200-239 mg/dLHigh Cholesterol: greater than 239 mg/dL LDL Cholesterol Calculated 60 <100 mg/dL [facility] Comment:Desirable LDL: less than 100 mg/dLNear Optimal/Above Optimal LDL: 110- 129 mg/dLBorderline High LDL: 130-159 mg/dLHigh LDL: 160-189 mg/dLVery High LDL: greater than or equal to 190 mg/dL HDL Cholesterol 58 >40 mg/dL [facility] Comment:Desirable HDL: great er than 40 mg/dL Note: This HDL assay may give artificially low results in patients with liver disease. Blood Venous blood specimen / Unknown 07/12/2025 3:32 PM EDT 07/12/2025 4:17 PM EDT us Cathy Wolfe WARP TENSION TESTER LAB BLOOD ORDERABLES Final Res ult [facility] [address] [place] [phone] * (ABNORMAL) Comprehensive Metabolic Panel (07/12/2025 3:32 PM EDT) Sodium 138 135 - 145 mmol/L [facility] Potassium 4.0 3.3 - 5.1 mmol/L [facility] Chloride 108 96 - 108 mmol/L [facility] Carbon Dioxide 25 22 - 29 mmol/L [facility] Anion Gap 9(L) 12 - 20 [facility] Urea Nitrogen (BUN) 11 9 - 16 mg/dL [facility] Creatinine, Serum 0.58 0.5 - 1.4 mg/dL [facility] Estimated Glomerular Filt Rate >60 [facility] Comment:Chronic Kidney Disea se: Estimated GFR < 60 mL/min/1.53x5Tyzgzj Kidney Disease: Estimated GFR < 15 mL/min/1.73m2 Glucose 85 60 - 115 mg/dL [facility] Calcium 9.4 8.4 - 10.2 mg/dL [facility] Bilirubin, Total 0.4 0.0 - 1.0 mg/dL [facility] Aspartate Amino Transferase 21 5 - 31 U/L [facility] Alanine Aminotransferase 10 0 - 31 U/L [facility] Total Protein 7.1 6.5 - 8.0 g/dL [facility] Albumin Level 4.6 3.5 - 5.0 g/dL [facility] Alkaline Phosphatase 81 39 - 117 U/L [facility] Blood Venous blood specimen / Unknown 07/12/2025 3:32 PM EDT 07/12/2025 4:17 PM EDT Cathy GREENP LAB BLOOD ORDERABLES Final Res ult Performing Organization Address [facility] Co de Phone Number [facility] [address] [place] [phone] * Hepatitis C Antibody with Reflex to HCV, RNA, Quantitative, Real-Time PCR (05/08/2023 11:51 AM EDT) Pathologist [facility] Hepatitis C Antibody NON-REACT EVA NON-REACT EVA [facility] [employer] Comment: HCV antibody was non-reactive. There is no laboratory evidence of HCV infection. In most cases, no further action is required. However, if recent HCV exposure is suspected, a test for HCV RNA (test code 00261) is suggested. For additional information please refer to http://education.GoMetro.Quipper/faq/GEY25l7 (This link is being provided for informational/ educational purposes only.) Blood Venous blood specimen / Unknown 05/08/2023 11:51 AM EDT 05/08/2023 11:52 AM EDT us Yordan Beltre MD LAB BLOOD ORDERABLES Final Resul t Performing Organization Address City/[facility] Co de Phone Number [facility] [address] [place] [address], [place] [address] [facility] [facility] [address] [place] [address] * Chlamydia/N. Gonorrhoeae RNA, TMA, Urogenitial (05/08/2023 11:51 AM EDT) Chlamydia trachomatis RNA, TMA, Urogenital NOT DETECTED NOT DETECTED [facility] Neisseria gonorrhoeae RNA, TMA, Urogenital NOT DETECTED NOT DETECTED [facility] [place] [employer] (Always Message) [facility] [employer]ingt Comment: The analytical performance characteristics of this assay, when used to test SurePath(TM) specimens have been determined by [facility] [employer]. The modifications have not been cleared or approved by the FDA. This assay has been validated pursuant to the CLIA regulations and is used for clinical purposes. For additional information, please refer to https://education.Veeker/faq/OAK791 (This link is being provided for information/ educational purposes only.) Urine, Random 05/08/2023 11: 51 AM EDT 05/08/2023 11:52 AM EDT Yordan Beltre MD LAB MICROBIOLOGY - GENERAL ORDER JUNE Final Result [facility] [address], [facility] [place] [address] [facility] [address] [place] [phone] * HIV-1/2 Antigen and Antibodies, Fourth Generation, with Reflexes (05/08/2023 11:51 AM EDT) HIV Antigen/Antibody, 4th Generation NON-REAC TIVE NON-REAC TIVE [facility] [employer] [place] [employer] Comment: HIV-1 antigen and HIV-1/HIV-2 antibodies were not detected. There is no laboratory evidence of HIV infection. PLEASE NOTE: This information has been disclosed to you from records whose confidentiality may be protected by state law. If your state requires such protection, then the state law prohibits you from making any further disclosure of the information without the specific written consent of the person to whom it pertains, or as otherwise permitted by law. A general authorization for the release of medical or other information is NOT sufficient for this purpose. For additional information please refer to http://education.Veeker/faq/TPM638 (This link is being provided for informational/ educational purposes only.) The performance of this assay has not been clinically validated in patients less than 2 years old. Blood Venous blood specimen / Unknown 05/08/2023 11:51 AM EDT 05/08/2023 11:52 AM EDT us Yordan Beltre MD LAB BLOOD ORDERABLES Final Resul t [facility] [address], [place] [address] [facility] [employer] [place] [employer] [facility] [address] [place] [address] from Last 3 Months or Most Recently Relevant to Health Maintenance Insurance [address] [place], [place] [address] [employer] Care Teams Harvesting Manager Relationship Specialty Start Date End Date Cathy Wolfe FNP [address] [place] [address] PCP - General Family Medicine 07/12/25
--- OUTSIDE RECORDS SUMMARY | 2025-07-12 17:27 | XMS_ITS | Encounter Summary ---
Author Organization [employer] Address [address] [facility] 7[address] [place] [address] Care Team Providers Care Cotton Program Technician Name Role Phone Cathy Wolfe SUPERVISOR [employer] Primary Care Provider [phone] Encounter Details Date Type Department Care Team (Latest Contact Info) Description 07/12/2025 Travel Social History Tobacco Use Types Packs/Day Years [...] t he electric, gas, oil or water [employer] threatened to shut off services in your [...] documented as of this encounter Care Teams Cotton Program Technician Relationship Specialty Start Date End Date Cathy Wolfe FNP [address] [place] [id number] PCP - General Family Medicine 07/12/25 documented as of this encounter
--- OUTSIDE RECORDS SUMMARY | 2025-07-12 17:27 | XMS_ITS | Encounter Summary ---
Author Organization [employer] Address [address] [facility] [address] [place] [address] Care Team Providers Care Slime Plant Operator Helper Name Role Phone Fernanda Turner Primary Care Provider [phone] Cathy Wolfe LETTER CARRIER Primary Care Provider [phone] Reason for Visit * Reason Onset Date Comments Results 08/14/2023 Encounter Details Date Type Department Care Team ([facility] st Contact Info) Description 08/14/2023 Telephone [facility] [address] [place] [address] Fernanda Turner FNP [address] [place] [address] Results Social History Tobacco Use Types Packs/Day Years Used Date Smoking Tobacco: Never Passive Smoke Exposure: Never Smokeless Tobacco: Never Alcohol Use Standard Drinks/Week Comments Never 0 (1 standard drink = 0.6 oz pur e alcohol) Comments No Sex and Gender Information Value Date Recorded Sex Assigned at Female 09/08/2022 10:38 AM EDT Legal Sex Female 10:38 AM EDT Gender Identity Female 09/08/2022 10:38 AM EDT Sexual Orientation Straight 09/08/2022 10 :38 AM EDT documented as of this encounter Miscellaneous Notes * Telephone Encounter - Wilbert Hassan RN - 08/19/2023 2:42 PM EDT T/C to pt. For below message, pt. Was advised that [facility] does not received result yet. Pt. Verbally agreed and understood. * Telephone Encounter - Lindsay Kiet - 08/14/2023 11:53 AM EDT Tc from patient requesting results for Us Pelvis complete order done at [facility] on 07/02/23 (pt is unsure of date). documented in this encounter Plan of Treatment Not on file documented as of this encounter Visit Diagnoses Not on filedocumented in this encounter Care Teams Slime Plant Operator Helper Relationship Specialty Start Date End Date Fernanda Turner FNP [address] [place] [address] PCP - General Family Medicine 07/08/23 11/29/23 Cathy Wolfe FNP [address] [place] [address] PCP - General Family Medicine 07/12/25 documented as of this encounter
[2025-07-13 08:26] LABS: HBS Num1 3.08 mIU/mL (0-7.99); HBc Num1 0.09 S/CO (0.00-0.79); HBsAGNum1 0.61 S/CO (0.00-0.99); HIV Num 1 0.06 S/CO (0.00-0.99); Hepatitis B Surface Antigen Negative (Negative); ~HepC Num1 0.19 S/CO (0.00-0.79); ~Hepatitis B Surface Antibody NONREACTIVE (Nonreactive); ~Hepatitis C Antibody Nonreactive (Nonreactive)
== END 2025-07-12 15:25 | disposition home or self-care (01) ==
LOC: HO.HHCL 15:24
PROVIDERS: PCP Nurse Practitioner Family; Visit Provider Nurse Practitioner Family
DX: Z00.00 Encounter for general adult medical examination without abnormal findings (principal); Z11.59 Encounter for screening for other viral diseases; Z11.4 Encounter for screening for human immunodeficiency virus [HIV]
CPT/HCPCS: 36415; 80053; 80061; 82306; 83036; 84443; 85025; 86704; 86706; 86803; 87340; 87389

== ENCOUNTER 2025-08-17 15:18 | Outpatient (REF) | payer MEDICAID, SELFPAY ==
[2025-08-17 18:28] LABS: Ferritin 8 ng/mL (10-122)
== END 2025-08-17 15:19 | disposition home or self-care (01) ==
LOC: HO.HHCL 15:18
PROVIDERS: PCP Nurse Practitioner Family; Visit Provider Nurse Practitioner Family
DX: D64.9 Anemia, unspecified (principal)
CPT/HCPCS: 36415; 82728

== ENCOUNTER 2025-09-15 10:19 | Outpatient (REF) | payer MEDICAID, SELFPAY ==
[2025-09-15 11:23] LABS: MANUAL DIFF FLAG NO
[2025-09-15 11:38] LABS: Hematocrit 39.0 % (37.0-47.0); Hemoglobin 12.1 g/dl (12.0-16.0); Imm Gran Abs Auto 0.03 X10*3/uL (0.00-0.03); Imm Gran Pct Auto 0.3 % (0.0-0.4); Lymphocytes Absolute Auto 2.5 X10*3/uL (1.2-4.9); Mean Corpuscular HGB Conc 31.0 g/dl (31.0-35.0); Mean Corpuscular Hemoglobin 24.7 pg (27.0-33.0); Mean Corpuscular Volume 79.6 fL (80.0-98.0); NRBC Abs Auto 0.000 X10*3/uL (0.0-0.012); NRBC Pct Auto 0.0 /100WBC (0.0-0.2); Platelet Count 310 X10*3/uL (160-400); Red Blood Count 4.90 X10*6/uL (4.20-5.50); White Blood Count 8.6 X10*3/uL (4.8-10.8)
--- OUTSIDE RECORDS SUMMARY | 2025-09-15 12:10 | XMS_ITS | Encounter Summary ---
Author Organization [employer] Address [address] [facility] [address] [place] [address] Care Team Providers Care Financial Coordinator Name Role Phone Fernanda Turner Primary Care Provider [phone] Cathy Wolfe SUPERVISOR [employer]Y CLEANING Primary Care Provider [phone] Reason for Visit * Reason Onset Date Comments Results 08/14/2023 Encounter Details Date Type Department Care Team ([facility] st Contact Info) Description 08/14/2023 Telephone [facility] [address] [place] [address] Fernanda Turner FNP [address] [place] [address] Results Social History Tobacco Use Types Packs/Day [...] For below message, pt. Was advised that [facility] does not received result yet. Pt. Verbally agreed and understood. * Telephone Encounter - Lindsay Darlingnez - 08/14/2023 11:53 AM EDT Tc from patient requesting results for Us Pelvis complete order done at [facility] on 07/02/23 (pt is unsure of date). documented in this encounter Plan of Treatment Upcoming Encounters Date Type Department Care Team (Late st Contact Info) Description 10/17/2025 3:45 PM EST Office Visit [facility] [address] [place] [address] Cathy Wolfe FNP [address] [place] [address] documented as of this encounter Visit Diagnoses Not on filedocumented in this encounter Care Teams Financial Coordinator Relationship Specialty Start Date End Date Fernanda Turner FNP [address] [place] [address] PCP - General Family Medicine 07/08/23 11/29/23 Cathy Wolfe FNP [address] [place] [address] PCP - General Family Medicine 07/12/25 documented as of this encounter
--- OUTSIDE RECORDS SUMMARY | 2025-09-15 12:10 | XMS_ITS | Encounter Summary ---
Author Organization [employer] Address [address] [facility] [address] [place] [address] Care Team Providers Care Bistro Server Name Role Phone Fernanda Turner EMT P Primary Care Provider [phone] Cathy Wolfe [facility] Primary Care Provider [phone] Reason for Visit * Reason Onset Date Comments Referral 10/12/2023 Encounter Details Date Type Department Care Team ([facility] st Contact Info) Description 10/12/2023 Telephone [facility] [address] [place], [place] [phone] Fernanda Turner FNP [address] [place] [address] Referral Social History Tobacco Use Types Packs/Day [...] Description 10/17/2025 3:45 PM EST Office Visit [facility] [address] [place] [address] Cathy Wolfe FNP [address] [place] [address] documented as of this encounter Visit Diagnoses Not on filedocumented in this encounter Care Teams Bistro Server Relationship Specialty Start Date End Date Fernanda Turner FNP [address] [place] [address] PCP - General Family Medicine 07/08/23 11/29/23 Cathy Wolfe FNP [address] [place] [address] PCP - General Family Medicine 07/12/25 documented as of this encounter
--- OUTSIDE RECORDS SUMMARY | 2025-09-15 12:10 | XMS_ITS | Encounter Summary ---
Author Organization [employer] Address [address] [facility] [address] [place] [address] Care Team Providers Care Torpedoman'S Mate Name Role Phone Nora Forbes MD Primary Care Provider Fernanda Turner Primary Care Provider [phone] Cathy Wolfe Primary Care Provider [phone] Reason for Visit * Reason Onset Date Comments order question 05/11/2023 Encounter Details Date Type Department Care Team (Late st Contact Info) Description 05/11/2023 Telephone [facility] [address] [place], [place] [phone] Nora Forbes MD [address] [place], [place] [phone] order question Social History Tobacco Use Types [...] to proceed. * Telephone Encounter - Grazyna Marco A - 05/11/2023 10:39 AM EDT Tc from [facility] calling in regards to pelvis ultrasound order. Tech would like to know if PCP would also like a transvaginal ultrasound since pt is 18. documented in this encounter Plan of Treatment Upcoming Encounters Date Type Department Care Team (Late st Contact Info) Description 10/17/2025 3:45 PM EST Office Visit [facility] [address] [place] [address] Cathy Wolfe FNP [address] [place] [address] documented as of this encounter Visit Diagnoses Not on filedocumented in this encounter Care Teams Torpedoman'S Mate Relationship Specialty Start Date End Date Nora Forbes MD [address] [place] [address] PCP - General Pediatrics 05/16/21 07/07/23 Fernanda Turner FNP [address] [place] [address] PCP - General Family Medicine 07/08/23 11/29/23 Cathy Wolfe FNP [address] [place] [address] PCP - General Family Medicine 07/12/25 documented as of this encounter
--- OUTSIDE RECORDS SUMMARY | 2025-09-15 12:10 | XMS_ITS | Clinical Summary ---
Author Organization [employer] Address [address] [facility] [address] [place] [address] Care Team Providers Care Emergency Room Tech Name Role Phone Cathy Wolfe [facility] Primary Care Provider [phone] Allergies No known active allergies Medications * This document contains information received from the source organization and may not represent a complete record from that organization. triamcinolone (Kenalog) 0.1 % cream 1 applic by topical route 2 times per day for max 14 days 07/23/2022 Active Junel FE 11/28 1-20 MG-MCG tablet Take 1 tablet by mouth Once per day. 06/29/2025 Active ferrous sulfate (Fe Tabs) 325 (65 Fe) MG EC tabletIndication s:Anemia, unspecified type Take 1 tablet (325 mg) by mouth with breakfast. Do not crush, chew, or split. 90 tablet 2 08/15/2025 05/12/20 26 Active naproxen (Naprosyn) 500 MG tabletIndication s:Chronic intractable headache, unspecified headache type Take 1 tab twice daily as needed 60 tablet 08/15/2025 Active FLUoxetine (PROzac) 20 MG capsuleIndicatio ns:Anxiety and depression Take 1 capsule (20 mg) by mouth Once per day. 30 capsule 2 08/15/2025 11/13/19 26 Active Active Problems Problem Noted Date Diagnosed Date [...] organization. Date Type Department Care Team Description 08/31/[address] [address] Cathy Wolfe FNP October08/15/2025 3:15 PM EDT Office Visit [address] [address] Cathy Wolfe, SYSTEMS INTEGRATION ADVISOR Anemia, unspecified type (Primary Dx); Encounter for immunization; Anxiety and depression; Chronic intractable headache, unspecified headache type 08/15/2025 Travel 08/14/[address] [address] Cathy Wolfe FNP CHART PREP 07/18/[address] [address] Cathy Wolfe FNP August Recall 07/12/2025 2:00 PM EDT Office Visit [address] [address] Cathy Wolfe, SYSTEMS INTEGRATION ADVISOR Well adult exam (Primary Dx); Encounter for immunization; Dietary counseling; Exercise counseling; Intractable headache, unspecified chronicity pattern, unspecified headache type; Anxiety and depression 07/12/2025 Travel 07/12/2025 Population Health Risk Score [facility] Department [address] [place] [phone] Provider, Population Health Generic 07/04/2025 Patient Outreach [facility] [address] [place] [address] Cathy Wolfe FNP Pre-visit Planning (SDOH negative, Tobacco screening negative.) from Last 3 Months Immunizations Immunization Administration Dates Next Due DTaP 2005 DTaP, Unspecified 05/10/2009, 7,2005,08/22 HPV 9-Valent 12/28/2020,09/01/2019 Hep A, Unspecified 05/05/2007 Hep A, ped/adol, 2 dose 04/23/2006 Hep B, Adolescent or Pediatric 2005 Hep B, Unspecified 05/27/2006,2005 HiB, unspecified 05/05/2007,2005 Hib (PRP-T) 2005 IPV 05/03/2009, 6,2005,06/19 Influenza, seasonal, injecta ble, preservative free 08/15/2025 MMR 05/03/2009,04/23/2006 Meningococcal MCV4P ACYW-135 06/06/2021,04/15/20 16 Meningococcal Polysaccharide A,C,Y,W-135 TT Conjugate 07/12/2025 Pneumococcal Conjugate PCV 13 05/05/2007 ,05/06/2006,2005,06/19 Tdap 04/15/2016 Varicella 05/03/2009,04/23/2006 Family History Medical History Relation Name Comments [...] with others, in a hotel, in a intermediate, living outside on the street, on a [...] Sign Reading Time Taken Comments Blood Pressure 130/74 08/15/2025 3:27 PM EDT Pulse 84 08/15/2025 3:27 PM EDT Temperature 37.1 C (98.8 F) 08/15/2025 3:27 PM EDT Respiratory Rate 16 08/15/2025 3:27 PM EDT Oxygen Saturation 99% 07/12/2025 2:05 PM EDT Inhaled Oxygen Concentration - - Weight 65.9 kg (145 lb 6 oz) 08/15/2025 3:27 PM EDT Height 155.5 cm (5' 1.22 ) 08/15/2025 3:27 PM ED T Body Mass Index 27.27 08/15/2025 3:27 PM EDT Plan of Treatment Upcoming Encounters Date Type Department Care Team (Late st Contact Info) Description 10/17/2025 3:45 PM EST Office Visit [facility] [address] [place] [address] Cathy Wolfe SYSTEMS INTEGRATION ADVISOR [address] [place] [address] Health Maintenance Due Date Last Done Comments Meningococcal B Vaccine (1 of 2 - Standard) 2021 Chlamydia and Gonorrhea Screening 05/08/2024 05/08/2023, 07/01/2022, 06/27/2021, Additional history exists COVID-19 Vaccine ( season) 2025 06/27/2021, 06/06/2021 Depression Monitoring 01/09/2026 07/12/2025, 025 DTaP/Tdap/Td Vaccines (7 - Td or Tdap) 04/15/2026 04/15/2016, 05/10/2009, 05/05/2007, Additional history exists Alcohol/Substance Use Screening 07/12/2026 07/12/2025 Disability Screening 07/12/2026 07/12/2025 Family Planning (PISQ) 07/12/2026 07/12/2025 SDOH Screening 07/12/2026 07/12/2025 Tobacco Screening 08/15/2026 08/15/2025 Zoster Vaccines (1 of 2) 2055 RSV Patients and Patients Aged 60 years or older (1 - 1-dose 75+ series) 2080 Hepatitis B Vaccines Completed 05/27/2006, 2005, 2005 HIB Vaccines Completed 05/05/2007, 08/09, 2005 Hepatitis A Vaccines Completed 05/05/2007, 04/23/20 Pneumococcal Vaccine: Pediatrics (0 to 5 Years) and At-Risk Patients (6 to 49) Years Completed 05/05/2007, 05/06/2006, 2005, Additional history exists IPV Vaccines Completed 05/03/2009, 09/09, 2005, Additional history exists HPV Vaccines Completed 12/28/2020, 09/01/2019 HIV Screening Completed 07/12/2025, 04/11, 07/01/2022 Hepatitis C Screening Completed 07/12/2025 , 05/08/2023, 07/01/2022 Meningococcal Vaccine Completed 07/12/2025 , 06/06/2021, 04/15/2016 Influenza Vaccine Completed 08/15/2025 RSV under 20 months Aged Out No longe r eligible based on patient's age to complete this topic Rotavirus Vaccines Aged Out No longer eligible based on patient's age to complete this topic Procedures Procedure Name Priority Date/Time Associated Diagnosis Comments CBC WITH AUTO DIFFERENTIAL Routine 09/15/2025 10:22 AM EST Anemia, unspecified type FERRITIN Routine 08/17/2025 3:25 PM EDT Anemia, unspecified type HEMOGLOBIN A1C Routine 07/12/2025 3:32 PM EDT Well adult exam VITAMIN D,25-OH,TOTAL,IA Routine 07/12/2025 3:32 PM EDT Well adult exam LIPID PANEL, STANDARD Routine 07/12/2025 3:32 PM EDT Well adult exam HIV 1/2 ANTIGEN/ANTIBODY, FOURTH GENERATION W/RFL Routine 07/12/2025 3:32 PM EDT Well adult exam CBC WITH AUTO DIFFERENTIAL Routine 07/12/2025 3:32 PM EDT Well adult exam HEPATITIS C AB W/REFL TO HCV RNA, QN, PCR Routine 07/12/2025 3:32 PM EDT Well adult exam HEPATITIS B SURFACE ANTIGEN, EIA Routine 07/12/2025 3:32 PM EDT Well adult exam HEPATITIS B SURFACE ANTIBODY, QUALITATIVE Routine 07/12/2025 3:32 PM EDT Well adult exam TSH Routine 07/12/2025 3:32 PM EDT Well adult exam HEPATITIS B CORE AB TOTAL Routine 07/12/2025 3:32 PM EDT Well adult exam COMPREHENSIVE METABOLIC PANEL Routine 07/12/2025 3:32 PM EDT Well adult exam CHLAMYDIA/N. GONORRHOEAE RNA, TMA, UROGENITAL Routine 05/08/2023 11:51 AM EDT Spotting from Last 3 Months or Most Recently Relevant to Health Maintenance Results * (ABNORMAL) CBC auto differential (09/15/2025 10:22 AM EST) Only the most recent of2 resultswithin the time period is included. White Blood Count 8.6 4.8 - 10.8 X10*3/uL [facility] Red Blood Count 4.90 4.20 - 5.50 X10*6/uL [facility] Hemoglobin 12.1 12.0 - 16.0 g/dl [facility] Hematocrit 39.0 37.0 - 47.0 % [facility] Mean Corpuscular Volume 79.6(L) 80.0 - 98.0 fL [facility] Mean Corpuscular Hemoglobin 24.7(L) 27.0 - 33.0 pg [facility] Mean Corpuscular HGB Conc 31.0 31.0 - 35.0 g/dl [facility] Red Cell Distribution Width 17.3(H) 11.0 - 16.0 % [facility] Platelet Count 310 160 - 400 X10*3/uL [facility] Mean Platelet Volume 12.0 9.4 - 12.3 fL [facility] Neutrophils Percent Auto 64.1 45 - 73 % [facility] Imm Gran Pct Auto 0.3 0.0 - 0.4 % [facility] Lymphocytes Percent Auto 28.5 20 - 40 % [facility] Monocytes Percent Auto 4.6 2 - 11 % [facility] Eosinophils Percent Auto 2.0 0 - 4 % [facility] Basophils Percent Auto 0.5 0 - 2 % [facility] NRBC Pct Auto 0.0 0.0 - 0.2 /100WBC [facility] Neutrophils Absolute Auto 5.5 2.0 - 8.3 x10*3/uL [facility] Imm Gran Abs Auto 0.03 0.00 - 0.03 X10*3/uL [facility] Lymphocytes Absolute Auto 2.5 1.2 - 4.9 X10*3/uL [facility] Monocytes Absolute Auto 0.4 0.1 - 1.2 X10*3/uL [facility] Eosinophils Absolute Auto 0.2 0.0 - 0.4 X10*3/uL [facility] Basophils Absolute Auto 0.0 0.0 - 0.2 X10*3/uL [facility] NRBC Abs Auto 0.000 0.0 - 0.012 X10*3/uL [facility] Blood Venous blood specimen / Unknown 09/15/2025 10:22 AM EST 09/15/2025 11:17 AM EST us [employer] LAB BLOOD ORDERABLES Final Res ult Performing Organization Address City/[facility]/ZIP Co de Phone Number [facility] [address] [place] [phone] * (ABNORMAL) Ferritin (08/17/2025 3:25 PM EDT) Ferritin 8(L) 10 - 122 ng/mL [facility] Blood Venous blood specimen / Unknown 08/17/2025 3:25 PM EDT 08/17/2025 5:44 PM EDT [employer] SYSTEMS INTEGRATION ADVISOR LAB BLOOD ORDERABLES Final Res ult Performing Organization Address [facility]/ZIP Co de Phone Number [facility] [address] [place] [phone] * Vitamin D, 25-Hydroxy, Total, Immunoassay (07/12/2025 3:32 PM EDT) Vitamin D 25-OH Total 30.3 >30 ng/mL [facility] Comment: Health Based Reference Values*< 20 ng/mL Wewomrxus00-15 ng/mL Insufficient> 30 ng/mL Sufficient*Dany MATHIS. N [...] EDT 07/12/2025 4:17 PM EDT Cathy Wolfe [facility] LAB BLOOD ORDERABLES Final Res ult [facility] [address] [place] [phone] * Hepatitis C Antibody with Reflex to HCV, RNA, Quantitative, Real-Time PCR (07/12/2025 3:32 PM EDT) Hepatitis C Antibody Nonreactive Nonreactive [facility] Comment:Antibodies to HCV no t detected; does not exclude early acuteHCV infection. Blood Venous blood specimen / Unknown 07/12/2025 3:32 PM EDT 07/12/2025 4:17 PM EDT [employer] [facility] LAB BLOOD ORDERABLES Final Res ult Performing Organization Address [facility]/ZIP Co de Phone Number [facility] [address] [place] [phone] * Hepatitis B surface antigen, EIA (07/12/2025 3:32 PM EDT) Hepatitis B Surface Ag Negative Negative [facility] Blood Venous blood specimen / Unknown 07/12/2025 3:32 PM EDT 07/12/2025 4:17 PM EDT [employer] LAB BLOOD ORDERABLES Final Res ult Performing Organization Address [facility] Co de Phone Number [facility] [address] [place] [phone] * Hepatitis B Core Antibody, Total (07/12/2025 3:32 PM EDT) Pathologist [facility] Hepatitis B Core Antibody Nonreactive Nonreactive [facility] Blood Venous blood specimen / Unknown 07/12/2025 3:32 PM EDT 07/12/2025 4:17 PM EDT [email or web address] LAB BLOOD ORDERABLES Final Res ult Performing Organization Address [facility]/ZIP Co de Phone Number [facility] [address] [place] [phone] * HIV-1/2 Antigen and Antibodies, Fourth Generation, with Reflexes (07/12/2025 3:32 PM EDT) HIV AB/AG Nonreactive Nonreactive [facility] Comment:HIV-1 p24 Ag and/or HIV-1/HIV-2 Ab not detected.A test result that is nonreactive does not exclude thepossibility of exposure to or infection with HIV-1 and/orHIV-2. Nonreactive results in this assay for individualswith prior exposure to HIV-1 and/or HIV-2 may be due toantigen and antibody levels that are below the limit ofdetection of this assay.The TopOPPS HIV Ag/Ab Combo assay result andsupplemental assay results should be interpreted inconjunction with the patient's clinical presentation,history and other laboratory results. If the results areinconsistent with clinical evidence, additional testing issuggested to confirm the result. Blood Venous blood specimen / Unknown 07/12/2025 3:32 PM EDT 07/12/2025 4:17 PM EDT [employer] LAB BLOOD ORDERABLES Final Res ult Performing Organization Address [facility]/ZIP Co de Phone Number [facility] [address] [place] [phone] * Hepatitis B Surface Antibody, Qualitative (07/12/2025 3:32 PM EDT) ~Hepatitis B Surface Antibody NONREACTIVE Nonreactive [facility] Comment:Nonreactive: < 8.00 mIU/mL Blood Venous blood specimen / Unknown 07/12/2025 3:32 PM EDT 07/12/2025 4:17 PM EDT [employer] LAB BLOOD ORDERABLES Final Res ult Performing Organization Address [facility]/ZIP Co de Phone Number [facility] [address] [place] [phone] * TSH (07/12/2025 3:32 PM EDT) Thyroid Stimulating Hormone 2.68 0.32 - 4.0 uIU/mL [facility] Comment:Note: A sustained TS H level above 2.5 uIU/mL may warrant further investigation. TSH 3rd Generation ([facility]) Blood Venous blood specimen / Unknown 07/12/2025 3:32 PM EDT 07/12/2025 4:17 PM EDT [facility] BLOOD ORDERABLES Final Res ult Performing Organization Address City/[facility]/ZIP Co de Phone Number [facility] [address] [place] [phone] * Hemoglobin A1c (07/12/2025 3:32 PM EDT) Hemoglobin A1c 5.4 <6.0 % [facility] Comment:Hemoglobin A1C Refer ence Range Adults: 4.8 - 6.0 % Non diabetic: < 6.0 % Goal: < 7.0 %Additional Action Suggested: > 8.0 %Note: Hemoglobin A1c results are invalid for patients with abnormal amounts of HbF. Blood transfusions may impact the HbA1c concentration in the patient sample. Estimated Average Glucose 108 mg/dL [facility] Comment:eAG = Estimated ave rage glucose which is %A1C expressed asaverage glucose, using the formula of the [id number]-[id number] Glucose study (ADAG), Diabetes Care, Vol.31,#8,Jun. 2007 Blood Venous blood specimen / Unknown 07/12/2025 3:32 PM EDT 07/12/2025 4:17 PM EDT Cathy [email or web address] BLOOD ORDERABLES Final Res ult Performing Organization Address [facility]/ZIP Co de Phone Number [facility] [address] [place] [phone] * Lipid Panel, Standard (07/12/2025 3:32 PM EDT) Triglycerides 51 <150 mg/dL [facility] Comment:Desirable Triglyceri de: less than 150 mg/dLBorderline High Triglyceride 150-199 mg/dLHigh Triglyceride: 200-499 mg/dLVery High Triglyceride: greater than or equal to 5OO mg/dL Cholesterol 128 <200 mg/dL [facility] Comment:Desirable Cholestero l: less than 200 mg/dLBorderline High Cholesterol: 200-239 mg/dLHigh Cholesterol: greater than 239 mg/dL LDL Cholesterol Calculated 60 <100 mg/dL [facility] Comment:Desirable LDL: less than 100 mg/dLNear Optimal/Above Optimal LDL: 110- 129 mg/dLBorderline High LDL: 130-159 mg/dLHigh LDL: 160-189 mg/dLVery High LDL: greater than or equal to 190 mg/dL HDL Cholesterol 58 >40 mg/dL [facility] Comment:Desirable HDL: great er than 40 mg/dL Note: This HDL assay may give artificially low results in patients with liver disease. Blood Venous blood specimen / Unknown 07/12/2025 3:32 PM EDT 07/12/2025 4:17 PM EDT us Cathy Wolfe SYSTEMS INTEGRATION ADVISOR LAB BLOOD ORDERABLES Final Res ult [facility] [address] [place] [phone] * (ABNORMAL) Comprehensive Metabolic Panel (07/12/2025 3:32 PM EDT) Sodium 138 135 - 145 mmol/L [facility] Potassium 4.0 3.3 - 5.1 mmol/L [facility] Chloride 108 96 - 108 mmol/L [facility] Carbon Dioxide 25 22 - 29 mmol/L [facility] Anion Gap 9(L) 12 - 20 [facility] Urea Nitrogen (BUN) 11 9 - 16 mg/dL [facility] Creatinine, Serum 0.58 0.5 - 1.4 mg/dL [facility] Estimated Glomerular Filt Rate >60 [facility] Comment:Chronic Kidney Disea se: Estimated GFR < 60 mL/min/[id number] Kidney Disease: Estimated GFR < 15 mL/min/1.73m2 Glucose 85 60 - 115 mg/dL [facility] Calcium 9.4 8.4 - 10.2 mg/dL [facility] Bilirubin, Total 0.4 0.0 - 1.0 mg/dL [facility] Aspartate Amino Transferase 21 5 - 31 U/L [facility] Alanine Aminotransferase 10 0 - 31 U/L [facility] Total Protein 7.1 6.5 - 8.0 g/dL [facility] Albumin Level 4.6 3.5 - 5.0 g/dL [facility] Alkaline Phosphatase 81 39 - 117 U/L [facility] Blood Venous blood specimen / Unknown 07/12/2025 3:32 PM EDT 07/12/2025 4:17 PM EDT Cathy Wolfe SYSTEMS INTEGRATION ADVISOR LAB BLOOD ORDERABLES Final Res ult [facility] [address] [place] [phone] * Chlamydia/N. Gonorrhoeae RNA, TMA, Urogenitial (05/08/2023 11:51 AM EDT) Chlamydia trachomatis RNA, TMA, Urogenital NOT DETECTED NOT DETECTED [facility] [employer] Neisseria gonorrhoeae RNA, TMA, Urogenital NOT DETECTED NOT DETECTED [facility] [employer] Comment [facility] [employer] Comment: The analytical performance characteristics of this assay, when used to test SurePath(TM) specimens have been determined by [facility]. The modifications have not been cleared or approved by the FDA. This assay has been validated pursuant to the CLIA regulations and is used for clinical purposes. For additional information, please refer to https://education.[employer]/faq/CZK643 (This link is being provided for information/ educational purposes only.) Urine, Random 05/08/2023 11: 51 AM EDT 05/08/2023 11:52 AM EDT Yordan Beltre MD LAB MICROBIOLOGY - GENERAL ORDER JUNE Final Result Performing Organization Address City/[facility]/ZIP Co de Phone Number [facility] [address], [place] [phone] [facility] [employer] [address] [place] [phone] from Last 3 Months or Most Recently Relevant to Health Maintenance [place] [address] [place] [address] C3 Care Teams Emergency Room Tech Relationship Specialty Start Date End Date Cathy Wolfe FNP [address] [place] [phone] PCP - General Family Medicine 07/12/25
[2025-09-15 12:26] LABS: Ferritin 9 ng/mL (10-122)
== END 2025-09-15 10:20 | disposition home or self-care (01) ==
LOC: HO.HHCL 10:19
PROVIDERS: PCP Nurse Practitioner Family; Visit Provider Nurse Practitioner Family
DX: D64.9 Anemia, unspecified (principal)
CPT/HCPCS: 36415; 82728; 85025

== ENCOUNTER 2025-10-20 10:13 | Outpatient (REF) | payer MEDICAID, SELFPAY ==
[2025-10-23 07:33] LABS: Quantiferon TB Gold Plus 1 NEGATIVE (NEGATIVE); TB Test (QFT) Mitogen -Nil 7.99 IU/mL; TB Test (QFT) Nil 0.01 IU/mL; TB Test (QFT) Plus TB1 -Nil 0.01 IU/mL; TB Test (QFT) Plus TB2 -Nil 0.03 IU/mL
== END 2025-10-20 10:14 | disposition home or self-care (01) ==
LOC: HO.HHCL 10:13
PROVIDERS: PCP Nurse Practitioner Family; Visit Provider Nurse Practitioner Family
DX: Z11.1 Encounter for screening for respiratory tuberculosis (principal)
CPT/HCPCS: 36415; 86480